=== PATIENT | female | born 1950 | race Caucasian/White ===

== ENCOUNTER 2021-10-11 07:38 | Outpatient (CLI) | payer MEDICARE | END 2021-10-11 07:39 | disposition home or self-care (01) | LOC: CSHCT 07:38 | PROVIDERS: ATTEND Internal Medicine | DX: Z12.2 Encounter for screening for malignant neoplasm of respiratory organs (principal); Z87.891 Personal history of nicotine dependence | CPT/HCPCS: 71271 ==

== ENCOUNTER 2023-05-15 07:53 | Outpatient (CLI) | payer MEDICARE | END 2023-05-15 07:54 | disposition home or self-care (01) | LOC: CSHCT 07:53 | PROVIDERS: ATTEND Internal Medicine | DX: Z12.2 Encounter for screening for malignant neoplasm of respiratory organs (principal); Z87.891 Personal history of nicotine dependence | CPT/HCPCS: 71271 ==